=== PATIENT | female | born 1995 | race Caucasian/White ===

== ENCOUNTER 2025-07-01 18:00 | Outpatient (REF) | payer OTHER, SELFPAY ==
--- NOTE | ~2025-07-01 | MR_ITS ---
EXAMINATION: MR LUMBAR SPINE WITHOUT CONTRAST CLINICAL INFORMATION: Radiculopathy COMPARISON: None available. TECHNIQUE: MRI of the lumbar spine was obtained using routine sequences without contrast. FINDINGS: Last rib-bearing vertebra labeled T12. No bone marrow STIR signal abnormality. Disc desiccation at L4-5 and L5-S1. Normal alignment. Conus medullaris ends at intervertebral disc T12-L1 with normal signal. T12-L1: No disc herniation. No neuroforamina stenosis. L1-2: No disc herniation. No neuroforamina stenosis. Mild broad-based disc bulging. L2-3: Broad-based disc bulging. No central spinal canal or neuroforamina stenosis. L3-4: Broad-based bulging. Facet joint hypertrophy. Reduced AP diameter of the thecal sac and neuroforamina. L4-5: Broad-based disc bulging. Facet joint hypertrophy. Facet effusions. Reduced AP diameter of the thecal sac. Bilateral neuroforamina stenosis encroaching the exiting nerve roots of L4. L5-S1: Broad-based disc bulging. Facet joint hypertrophy. Reduced AP diameter of the thecal sac. Bilateral neuroforamina stenosis encroaching the L5 exiting nerve roots. No prevertebral compartment hematoma, mass or fluid collection. MR/MR lumbar spine wo con IMPRESSION: Multilevel lumbar spondylosis pronounced at L4-5, L5-S1 and to a lesser extent L3-4 likely encroaching the exiting nerve roots L3-L4 and L5. Electronically signed by: Jarred Patterson MD 07/02/2025 06:47 AM [facility] [place]
--- OUTSIDE RECORDS SUMMARY | 2025-07-02 00:56 | XMS_ITS | Encounter Summary ---
Author Organization [facility] Address [address] [place] [address] [place] [phone] Phone Care Team Providers Care Catering Sous Chef Name Role Phone Lucrecia Stewart MD Primary Care Provider [phone] Lucrecia Stewart MD Unavailable [phone] February, Yeimi Gonzales MD Unavailable [phone] Lucrecia Stewart MD Unavailable [phone] Encounter Details Date Type Department Care Team (Late st Contact Info) Description 11/02/2023 Procedure Pass [facility] Diagnostic Cardiology [address] [place] [phone] Social History Tobacco Use Types Packs/Day Years Used Date Smoking Tobacco: Never Smokeless Tobacco: Never Alcohol Use Standard Drinks/Week Comments Not Currently 0 (1 standard drink = 0.6 oz pur e alcohol) soc Education Answer Date Recorded Are you interested in more education? Not on osvaldo e 11/17/2022 Are you concerned about learning? Not on file 11/17/2022 No 11/17/2022 No 11/17/2022 Digital Access Answer Date Recorded No 12/15/2022 No 12/15/2022 Reliable internet access at home? Not on file 12/15/2022 Device with a working camera? Not on file Comments No Sex and Gender Information Value Date Recorded Sex Assigned at Female 09/13/2020 11:27 AM EST Legal Sex Female 1:20 PM EDT Gender Identity Genderqueer/Queer 04/09/2023 10: 00 AM EDT Sexual Orientation Lesbian or Qureshi 04/09/2023 10 :00 AM EDT Sexual Orientation Queer 04/09/2023 10 :00 AM EDT documented as of this encounter Plan of Treatment Not on file documented as of this encounter Goals Goal Patient Goal Type Associated Problems Recent Progress Patient-Stated? Author Patient will contact her insurance to see if they can send her a list of therapy resources in network with her specific plan. General Improving( 12:12 PM EDT) Cathryn Correia documented as of this encounter Visit Diagnoses Not on filedocumented in this encounter Additional Health Concerns Assessment Noted Time PHQ-9 Depression Total Score: 22 03/16/ 023 3:10 PM EDT PHQ-2 Depression Total Score: 1 11/26/19 24 2:36 PM EDT documented as of this encounter Care Teams Catering Sous Chef Relationship Specialty Start Date End Date Lucrecia Stewart MD [address] [place] [phone] [email or web address] PCP - General 08/09/16 Lucrecia Stewart MD [address] [place] [phone] Historical LMR Provider 08/14/16 Yeimi Adams MD [address] [place] [phone] Obstetrics and Gynecology 05/24/20 Lucrecia Stewart MD [address] [place] [phone] Insurance Assigned Provider 12/01/23 01/31/25 documented as of this encounter Additional Source Comments The information contained in this document represents components of the legal health record. It is not the complete legal health record.[facility]
--- OUTSIDE RECORDS SUMMARY | 2025-07-02 00:57 | XMS_ITS | Clinical Summary ---
Author Organization [facility] Address [address] [facility] [address] [place] [phone] Phone Care Team Providers Care Insulation Hoseman Name Role Phone Lucrecia Stewart MD Primary Care Provider Lucrecia Stewart MD Unavailable [phone] February, Yeimi Gonzales MD Unavailable [phone] Allergies Active Allergy Reactions Criticality Noted Date Comments Penicillins 06/03/2023 Unsure of reaction Medications levonorgestreL (MIRENA) 20 mcg/24 hours (6 yrs) 52 mg intrauterine device 1 each by Intrauterine route. Active fluticasone propionate (FLONASE) 50 mcg/actuation nasal sprayIndications:S easonal allergic rhinitis due to pollen 2 sprays by Nasal route daily. 16 g 2 05/29/20 23 Active baclofen (LIORESAL) 10 MG tabletIndications: muscle spasticity of spinal origin Take 10 mg by mouth nightly at bedtime as needed for spasm. Indications: muscle spasms caused by a spinal disease Active levalbuterol (XOPENEX HFA) 45 mcg/actuation inhalerIndications :Asthma Inhale 2 puffs into the lungs every 6 (six) hours as needed for wheezing. 15 g 08/12/19 25 Active propranoloL (INDERAL) 10 MG immediate release tabletIndications: Anxiety Take 1 tablet (10 mg total) by mouth 2 (two) times a day. 60 tablet 08/29/19 25 Active Additional Information Patient taking differently:10 mg Oral 2 times daily,As needed, Reported on 11/07/2024 ondansetron (ZOFRAN-ODT) 4 MG disintegrating tabletIndications: Nausea and vomiting, unspecified vomiting type Take 1 tablet (4 mg total) by mouth daily as needed for nausea. 7 tablet 08/29/19 25 Active LORazepam (ATIVAN) 0.5 MG tabletIndications: Anxiety Take 1 tablet (0.5 mg total) by mouth daily as needed for anxiety. 7 tablet 11/08/19 25 Active SUMAtriptan (IMITREX) 50 MG tablet Take 1 tablet (50 mg total) by mouth once as needed for migraine. Can repeat dose in 2 hours if needed. Do not exceed 2 doses in a 24 hour period. Max dose 200mg/ day 2 tablet 11/11/19 25 Active DULoxetine (CYMBALTA) 60 MG capsuleIndications :Recurrent major depressive disorder, in partial remission Take 1 capsule (60 mg total) by mouth every morning. PLEASE SCHEDULE 6 MONTH FOLLOW UP 90 capsule 05/27/20 25 Active Active Problems Problem Noted Date Diagnosed Date Body mass index (BMI) 40.0-44.9, adult Assessment & Plan (08/29/2024 11:33 AM EST): Wt Readings from Last 3 Encounters: 08/29/24 112 kg (247 lb) 07/04/24 122 kg (269 lb) 06/02/24 128.4 kg (283 lb) Could consider 2.5mg of zepbound in future once source of vomiting is determined. She was taking that dosing with effect. Nausea and vomiting 08/29/2024 Assessment & Plan (08/29/2024 9:43 AM EST): Patient with 3 recent ED visits. I have reviewed each ED visit. Last visit showed potassium of 3.2, will repeat BMP today. If it continues to be low patient will be replaced with potassium supplement. We discussed continuing Gatorade, Pedialyte and eating things like pretzels and soups. We reviewed her CT scan possible pancolitis noted and possible inflammatory changes noted around pancreas. Lipase was normal. She had a nonacute abdomen in office today. She will discuss with GI in depth later today. We discussed that marijuana and Zepbound could be contributing to symptoms. She will continue to hold both until the etiology of her nausea and vomiting is determined. 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 Assessment & Plan (04/28/2024 1:53 PM EDT): Patient feels like symptoms are improving with [facility]. She will continue as recommended by clinic. She will send me paperwork I can review. Postural dizziness 01/23/2024 Assessment & Plan (02/15/2024 10:09 AM EDT): Patient will complete echo as recommended by cardiology. Assessment & Plan (01/23/2024 3:30 PM EDT): She may have POTS, based on history of orthostatic intolerance and correlation of symptoms with sustained increase in heart rate (at least 30 beats/minute) within 10 minutes of standing, without orthostatic hypotension. Differential includes: dehydration, iatrogenic effect of medications, reflex syncope, orthostatic hypotension, inappropriate sinus tachycardia, panic/anxiety. Initial treatment recommended: 3 liters of water intake daily, with 8-12 grams of sodium intake daily (2 Tsp) Routine exercise, with consideration of physical therapy. Lower extremity muscle tensing/leg crossing/weight shift with onset of symptoms, to improve venous return. Consider: compressive stockings and/or abdominal binder Continue beta maribel therapy with propranolol Palpitations 01/22/2024 Assessment & Plan (08/29/2024 9:40 AM EST): Slightly long QTc observed during one of the patient's ED visits. QTC in normal range again. 12 lead EKG obtained, see report in MUSE. Given low heart rate, will reduce the propranolol to 10 mg twice daily. She will continue to monitor heart rate. Assessment & Plan (01/22/2024 7:49 PM EDT): Reviewed recent Zio patch monitor results with patient in detail today. No Afib, SVT or NSVT. Her palpitations correlated with sinus tachycardia. 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 She will also follow up with GI as well. Assessment & Plan (02/15/2024 10:10 AM EDT): Patient had previously reported rectal bleeding, with the perianal fistula, I have also referred there to GI for further evaluation Assessment & Plan (01/14/2024 3:17 PM EDT): Continue as recommended by surgery. Assessment & Plan (12/21/2023 1:33 PM EDT): She will continue as recommended by surgery. Keep appointment as scheduled on 01/14/24 for re-assessment of symptoms. Sinus tachycardia 12/03/2023 Assessment & Plan (11/07/2024 1:34 PM EDT): Patient uses propranolo 10mg BID as needed. She mostly uses it when she knows she will be active. Assessment & Plan (01/23/2024 3:32 PM EDT): Diagnosis discussed with patient today, along with normal ETT results. Likely represents high adrenergic tone. RECOMMEND: Daily physical activity. Good oral fluid hydration. Weight loss. Continue propranolol. Decrease marijuana use. Non-urgent echocardiogram. Assessment & Plan (01/14/2024 3:20 PM EDT): Has ongoing symptoms, due to the symptoms has requested a modified work schedule. We have agreed upon her working 5 hours a day 4 days a week until she is reassessed. She will drop off paperwork for me to fill out. Keep appointment as scheduled with cardiology on January 24. Assessment & Plan (12/21/2023 1:29 PM EDT): Keep appointment as scheduled with cardiology on 01/23/24. Assessment & Plan (12/03/2023 4:00 PM EDT): Holter showed sinus tachycardia, referred to cardiology for further evaluation. Urgent follow up indicated for any worsening symptoms. Obesity 11/30/2023 Assessment & Plan (07/04/2024 8:10 AM EST): Tolerating 2.5mg weekly of zepbound without any adverse side effects. Will increase to 5mg weekly. Continue with lifestyle modifications. I will see patient in follow up on 08/29/24, follow up PRN prior. Medication slowing stool, which she finds beneficial but she is aware she should still follow up with GI. Assessment & Plan (06/04/2024 7:29 AM EST): Patient is interested in injectable anti-obesity medication. The following contraindications and precautions were reviewed and discussed: no. Contraindications: Personal or family history Medullary Thyroid Cancer (MTC) or a personal history of Multiple Endocrine Neoplasia Type 2 (MEN2) - [Black Box Warning] Warnings: Not intended for use if or trying to become Not recommended for patients with unprovoked pancreatitis (not due to gallstones), severe gastroparesis, or other severe GI disease If on Oral Contraceptive (OCP), patient should use a backup form of contraception for four weeks when starting and titrating the dose as these medications can affect OCPs (per package insert for tirzepatide; at prescriber discretion for other medications) GI side effects (i.e., nausea, vomiting, diarrhea/constipation) are common with these medications Patient has Medicare insurance? No. Discussed weight management options and patient would like to proceed with injectable anti-obesity medication. Estimated body mass index is 43.03 kg/m as calculated from the following: Height as of 02/01/24: 172.7 cm (5' 8 ). Weight as of this encounter: 128.4 kg (283 lb). Patient has the following FDA Approved Indications: BMI >30 (+/-) the following comorbidities (select all that apply): Other Cardiovascular Disease - LVH. Any ORAL anti-obesity medication contraindications/warnings? (I.e.: CAD, uncontrolled HTN, history of suicidal ideation, already on stimulant medication) Yes, anxiety. Note: Certain insurances may have more strict BMI criteria for approval Weight Management History: Patient has participated in a comprehensive weight management program (enrollment to a plan i.e. Weight Watchers, [employer], Noom, which may require receipts) that encourages behavioral modification, reduced calorie diet and increased physical activity with continuing follow-up prior to using drug therapy?Yes. Name of program: [employer], my fitness pal Dates started and stopped: this year Did this incur a cost to the patient: no Did the patient lose at least 5 percent of baseline body weight. no. The requested drug will be used with a reduced calorie diet and increased physical activity for chronic weight management? yes Previous anti-obesity medication(s) used (with dates and reasons for stopping): none Next Steps/Patient Expectations: [x] There is no guarantee the prior authorization will be approved. [x] This is a time intensive process. It will most likely require a prior authorization and it may be difficult to find it in stock at a pharmacy due to current medication shortages. [x] It is the patient's responsibility to find the medication at a local pharmacy. Patient can request the pharmacy to transfer it in from wherever it was initially sent, or ask the prescriber to send a new prescription if needed. [x] If the medication is a listed plan exclusion (not covered) we will not be submitting an appeal, as the medication will not be covered. Discussed with patient: yes Assessment & Plan (02/15/2024 10:11 AM EDT): She is working on diet. Fibromyalgia 02/05/2023 Assessment & Plan (01/14/2024 3:18 PM EDT): Patient will be participating in [facility] but needs to complete after her surgery because the program does not want her to start and stop program. Assessment & Plan (12/21/2023 1:30 PM EDT): Is pursuing evaluation by [facility]. May require multiple treatments based on evaluation. Assessment & Plan (11/02/2023 1:25 PM EDT): Referred to pain management for eval. Assessment & Plan (02/05/2023 3:43 PM EDT): Since last visit with Dr. 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 Hernandez on 04/16/23. Annual physical exam 05/21/2020 Overview (12/03/2023): Pap smear: negative for malignancy, 2020 Dental: advised to schedule a cleaning Vision: up to date Tdap: will defer for now Pneumonia: declines HPV: completed Flu: n/a Std testing: agreeable to proceeding Screening labs: as ordered Primary insomnia 04/16/2020 Assessment & Plan (05/28/2020 2:39 PM EST): Patient with definite improvement in symptoms of insomnia on trazodone however she feels overly sedated the next day. She was not having any improvement in her symptoms on 50 mg therefore I recommended that she cut from 100 to 75 mg to see if that can both control her symptoms and help with the feeling of fatigue the next day. She will keep her appointment as scheduled with medication provider. Migraine without aura and wi thout status migrainosus, not intractable 01/18/2018 Seasonal allergic rhinitis due to pollen 018 Uncoded Health Care Proxy 05/30/16 05/31/2016 Overview (08/12/2016): Health Care Proxy 05/30/16 Asthma 05/30/2016 Overview (09/08/2016): Asthma Assessment & Plan (04/26/2021 11:08 AM EDT): Well controlled and uses Albuterol prn Recurrent major depressive disorder 05/30/2016 Overview (09/08/2016): sees Psych provider who is [place] and they have phone sessions every 2 weeks. Juanito Frederick ( psychologist) Depressive disorder; sees Psych provider who is in [place] and they have phone sessions every 2 weeks. Juanito Frederick ( psychologist) Assessment & Plan (11/07/2024 1:34 PM EDT): As above for anxiety. Assessment & Plan (12/03/2023 4:04 PM EDT): Appears in good spirits today Assessment & Plan (03/16/2023 4:22 PM EDT): Will increase to cymbalta 60mg daily. Denies thoughts of hurting with self or others. [place] has met with patient at conclusion of visit to offer support and other suggestions. Assessment & Plan (01/16/2023 5:37 PM EDT): At her last visit patient continued to report generalized body aches. She had been evaluated by the client relations specialist who felt that she had generalized myofascial pain and it had been recommended that she be evaluated by the sales and events coordinator. During that visit I had discussed with her that she may benefit from Cymbalta. We therefore agreed to wean her off sertraline and transition her to Cymbalta. She has now been off sertraline for the last 3 days. I discussed starting Cymbalta at a small dose of 20 mg once daily and we will reevaluate her response to this. She has not yet seen the sales and events coordinator. Assessment & Plan (04/26/2021 11:20 AM EDT): Currently takes Sertraline 37.5 mg nightly which is working better Anxiety 05/30/2016 Overview (09/08/2016): Anxiety Assessment & Plan (11/07/2024 1:34 PM EDT): Orders: LORazepam (ATIVAN) 0.5 MG tablet; Take 1 tablet (0.5 mg total) by mouth daily as needed for anxiety. Anxiety June extremely high now. She will continue on Cymbalta 60 mg daily. She will take lorazepam as needed for severe panic syndrome. I have filled out the PFMLA paperwork for her. Urgent follow-up indicated symptoms worsen in any way. 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 However she does report heightened anxiety with repetitive episodes of emesis. Ativan was refilled, MassPAT verified. Assessment & Plan (03/16/2023 4:21 PM EDT): Anxiety continues to be high. While cymbalta is being titrated up again, a supply of ativan will be given again. Mass Pat pulled and verified Assessment & Plan (02/05/2023 3:42 PM EDT): Anxiety extremely high now. She would likely benefit from an increased Cymbalta dose. I have increased her to 30 mg. I have also prescribed Ativan 1 tablet to take as needed after she is home for the day to help with anxiety. She is aware it is as needed medication and should should not take daily. She has a support of her roommate, family and her support dog. She is actively looking for a therapist. Would recommend follow up in one month Chronic post-traumatic stress disorder (PTSD) Overview (09/08/2016): Chronic post-traumatic stress disorder Assessment & Plan (02/05/2023 3:43 PM EDT): As above for anxiety Vitamin D deficiency 05/30/2016 Overview (09/08/2016): Vitamin D deficiency Bee sting allergy 05/30/2016 Overview (02/07/2017): Bee Venom Protein. Swelling. Converted From LMR Free Text Allergy. 02/07/17. Allergy to cats 05/30/2016 Overview (02/07/2017): Cats. Converted From R Free Text Allergy. 02/07/17. Food allergy 05/30/2016 Overview (02/07/2017): Spinach. Converted From LMR Free Text Allergy. 02/07/17. Encounters Date Type Department Care Team Description 05/27/2025 Refill [facility] [address] [place] [address] Lucrecia Stewart MD Medication Refill from Last 3 Months Immunizations Immunization Administration Dates Next Due COVID-19 (Pre-05/14) Pfizer Vaccine, mRNA, PF 10/18/2020 DTaP 09/05/2001, 9,1997,10/21,1997 HPV, unspecified formulation 05/30/2016 HPV,quadrivalent 07/06/2015,04/14/2014, 3 Hepatitis A, Unspecified 07/06/2015 Hepatitis B 03/31/1998,1997,1997 Hepatitis B Adult 10/28/2018 Hib, unspecified formulation 09/20/1998, 1997,1997,08/23 INFLUENZA, SPLIT VIRUS, TRIVALENT PF 10/24/2024 IPV 09/05/2001, 8,1997,08/23 Influenza, Unspecified Formulation 05/30(Deferred: Patient Decision - 00) MMR 09/11/2002,09/20/1998 Meningococcal MCV4P 07/06/2015,09/22/2010 Pneumococcal conjugate PCV20 10/24/2024 Tdap 11/04/2021, 2(Deferred: Other),09/22/2010 Varicella 02/22/2012,03/11/2002 Family History Medical History Relation Comments Glaucoma Unspecified Breast cancer Neg Hx Colon cancer Neg Hx Ovarian cancer Neg Hx Relation Status Comments Unspecified Social History Tobacco Use Types Packs/Day Years Used Date Smoking Tobacco: Never Smokeless Tobacco: Never Alcohol Use Standard Drinks/Week Comments Not Currently 0 (1 standard drink = 0.6 oz pur e alcohol) Education Answer Date Recorded Are you interested in more education? Not on osvaldo e 11/17/2022 Are you concerned about learning? Not on file 11/17/2022 No 11/17/2022 No 11/17/2022 Digital Access Answer Date Recorded No 12/15/2022 No 12/15/2022 Reliable internet access at home? Not on file 12/15/2022 Device with a working camera? Not on file Intimate Partner Violence Answer Date R ecorded Are you denied basic needs s uch as food, clothing, or medical care? No 09/15/2024 In the past 12 months have y ou been in a relationship with a person who hurts, threatens, or tries to control you? No 09/15/2024 Are you denied basic needs s uch as food, clothing, or medical care? No 09/15/2024 In the past 12 months have y ou been in a relationship with a person who hurts, threatens, or tries to control you? No 09/15/2024 Comments No Sex and Gender Information Value Date Recorded Sex Assigned at Female 09/13/2020 11:27 AM EST Legal Sex Female 1:20 PM EDT Gender Identity Genderqueer/Queer 04/09/2023 10: 00 AM EDT Sexual Orientation Lesbian or Qureshi 04/09/2023 10 :00 AM EDT Sexual Orientation Queer 04/09/2023 10 :00 AM EDT Last Filed Vital Signs Vital Sign Reading Time Taken Comments Blood Pressure 136/79 09/15/2024 10:28 AM EST Pulse 92 11/07/2024 11:10 AM EDT per pt Temperature 36.3 C (97.4 F) 09/15/2024 9:54 AM EST Respiratory Rate 20 09/15/2024 10:28 AM EST Oxygen Saturation 99% 09/15/2024 10:28 AM EST Inhaled Oxygen Concentration - - Weight 117.9 kg (260 lb) 11/07/2024 11:10 AM EDT Height 172.7 cm (5' 8 ) 09/15/2024 8:39 AM EST Body Mass Index 39.53 09/15/2024 8:39 AM EST Plan of Treatment Health Maintenance Due Date Last Done Comments HEPATITIS A VACCINES (2 of 2 - 2-dose series) 01/05/2016 07/06/2015 PAP SMEAR 2018 REPEAT PHQ 12/07/2024 11/07/2024, 11/07/2024 INFLUENZA VACCINE (#1) 2025 10/24/2024 COVID-19 VACCINE (2024- season) 2025 04/17/2024, 04/20/2023, 05/25/2022, Additional history exists DEPRESSION SCREENING 11/07/2025 11/07/2024, 11/08/19 25 Adult Td,Tdap Booster 11/05/2031 11/04/2021, 011 HIB VACCINES Completed 09/20/1998, 07/1997, 1997, Additional history exists MENINGOCOCCAL VACCINES (ACWY) Completed 07/06/2015, 09/22/2010 HEPATITIS C SCREENING Completed 11/30/2023 , 11/10/2021, 08/08/2018 HIV ONE-TIME SCREENING (18-65 YEARS) Completed 11/30/2023 PNEUMOCOCCAL VACCINES (0-49 years) Completed 10/24/2024 SMOKING STATUS SCREENING (Once After 26 Yrs) Completed 11/10/2024 MENINGOCOCCAL VACCINES (B) Aged Out N o longer eligible based on patient's age to complete this topic Goals Goal Patient Goal Type Associated Problems Recent Progress Patient-Stated? Author Patient will contact her insurance to see if they can send her a list of therapy resources in network with her specific plan. General Improving( 12:12 PM EDT) Cathryn Correia Medical Devices Implanted Type Area Dairy Farm Manager Device Identifier Shelf Expiration Date Model / Serial / Lot Control Device Control Device Procedures Procedure Name Priority Date/Time Associated Diagnosis Comments HEPATITIS ACUTE PANEL Routine 11/30/2023 3:10 PM EDT Screening examination for STD (sexually transmitted disease) from Last 3 Months or Most Recently Relevant to Health Maintenance Results * Hepatitis acute panel (11/30/2023 3:10 PM EDT) HBV SURFACE ANTIGEN Negative Negative [facility] Hepatitis A Antibody, IgM Negative Negative [facility] HEP B CORE IGM AB Negative Negative [facility] HCV ANTIBODY Negative Negative [facility] Blood 11/30/2023 3:10 PM EDT 11/30/2023 4:48 PM EDT us Carolkala Jones [employer] BLOOD BKR ORDERAB LES Final Result Performing Organization Address City/State/[facility] Co de Phone Number [address] [address], [facility] [phone] from Last 3 Months or Most Recently Relevant to Health Maintenance Insurance [facility] PPO [facility] PPO [facility] [address] [place] [address] Advance Directives For more information, please contact: [phone] (9AM - 5PM [facility], Sunday-Sunday) * Full Code (Latest Code Status on File) Date Activated Date Inactivated Comments 09/15/2024 8:17 AM Question Answer Comments Code Status Confirmed With: Patient Care Teams Insulation Hoseman Relationship Specialty Start Date End Date Lucrecia Stewart MD [address] [place] [phone] [email or web address] PCP - General 08/09/16 Lucrecia Stewart MD [address] [place] [phone] Historical LMR Provider 08/14/16 Yeimi Adams MD [address] [place], [place] [phone] Obstetrics and Gynecology 05/24/20 Additional Source Comments The information contained in this document represents components of the legal health record. It is not the complete legal health record.[facility]
--- OUTSIDE RECORDS SUMMARY | 2025-07-02 00:57 | XMS_ITS | Encounter Summary ---
Author Organization [facility] Address [address] [place] [address] [place] [phone] Phone Care Team Providers Care Reed Polisher Name Role Phone Lucrecia Stewart MD Primary Care Provider [phone] Lucrecia Stewart MD Unavailable [phone] February, Yeimi Gonzales MD Unavailable [phone] Lucrecia Stewart MD Unavailable [phone] Encounter Details Date Type Department Care Team (Late st Contact Info) Description 01/23/2024 Procedure Pass [facility] [address] [place] [phone] Social History Tobacco Use Types Packs/Day Years [...] 3:10 PM EDT PHQ-2 Depression Total Score: 2 02/15/20 24 9:44 AM EDT documented as of this encounter Care Teams Reed Polisher Relationship Specialty Start Date End Date Lucrecia Stewart MD [address] [place] [phone] PCP - General 08/09/16 Lucrecia Stewart MD [address] [place] [phone] Historical LMR Provider 08/14/16 Yeimi Adams MD [address] [place] [phone] Obstetrics and Gynecology 05/24/20 Lucrecia Stewart MD [address] [place] [phone] Insurance Assigned Provider 12/01/23 01/31/25 documented as of this encounter Additional Source Comments The information contained in this document represents components of the legal health record. It is not the complete legal health record.[facility]
--- OUTSIDE RECORDS SUMMARY | 2025-07-02 00:57 | XMS_ITS | Encounter Summary ---
Author Organization [facility] Address [address] [facility] [address] [place] [address] Phone Care Team Providers Care E/M Engineer Name Role Phone Lucrecia Stewart MD Primary Care Provider [phone] Lucrecia Stewart MD Unavailable [phone] February, Yeimi Gonzales MD Unavailable [phone] Lucrecia Stewart MD Unavailable [phone] Encounter Details Date Type Department Care Team (Late st Contact Info) Description 09/15/2024 Procedure Pass [facility] PERIOP [address] [place] [address] Social History Tobacco Use Types Packs/Day Years [...] specific plan. General Improving( 12:12 PM EDT) No Cathryn Bacon documented as of this encounter Visit Diagnoses Not on filedocumented in this encounter Additional Health Concerns Assessment Noted Time PHQ-9 Depression Total Score: 22 023 3:10 PM EDT PHQ-2 Depression Total Score: 0 08/29/19 25 8:28 AM EST documented as of this encounter Care Teams E/M Engineer Relationship Specialty Start Date End Date Lucrecia Stewart MD [address] [place] [address] [email or web address] PCP - General 08/09/16 Lucrecia Stewart MD [address] [place] [address] [email or web address] Historical LMR Provider 08/14/16 Yeimi Adams MD [address] [place] [id number] [email or web address] Obstetrics and Gynecology 05/24/20 Lucrecia Stewart MD [address] [place] [phone] [email or web address] Insurance Assigned Provider 12/01/23 01/31/25 documented as of this encounter Additional Source Comments The information contained in this document represents components of the legal health record. It is not the complete legal health record.[facility]
--- OUTSIDE RECORDS SUMMARY | 2025-07-02 00:57 | XMS_ITS | Encounter Summary ---
Author Organization [facility] Address [address] [facility] [address] [place] [address] Phone Care Team Providers Care X Ray Control Equipment Repairer Name Role Phone Lucrecia Stewart MD Primary Care Provider [phone] Lucrecia Stewart MD Unavailable [phone] February, Yeimi Gonzales MD Unavailable [phone] Lucrecia Stewart MD Unavailable [phone] Encounter Details Date Type Department Care Team (Late st Contact Info) Description 02/07/2024 Procedure Pass [facility] PERIOPERATIVE DEPT [address] [place] [id number] Social History Tobacco Use Types Packs/Day Years [...] Intimate Partner Violence Answer Date R ecorded Denied Basic Needs Not on file 02/07/2024 In the past 12 months have y ou been in a relationship with a person who hurts, threatens, or tries to control you? No 02/07/2024 Worried food would run out Not on file 02/06 In the past 12 months have y ou been in a relationship with a person who hurts, threatens, or tries to control you? No 02/07/2024 Comments No Sex and Gender Information Value [...] PM EDT PHQ-2 Depression Total Score: 0 12/06/19 24 1:45 PM EDT documented as of this encounter Care Teams X Ray Control Equipment Repairer Relationship Specialty Start Date End Date Lucrecia Stewart MD [address] [place] [address] [email or web address] PCP - General 08/09/16 Lucrecia Stewart MD [address] [place] [address] Historical LMR Provider 08/14/16 Yeimi Adams MD [address] [place] [phone] [email or web address] Obstetrics and Gynecology 05/24/20 Lucrecia Stewart MD [address] [place] [phone] [email or web address] Insurance Assigned Provider 12/01/23 01/31/25 documented as of this encounter Additional Source Comments The information contained in this document represents components of the legal health record. It is not the complete legal health record.[facility]
== END 2025-07-01 18:01 | disposition home or self-care (01) ==
LOC: HO.MRI 18:00
PROVIDERS: Visit Provider Physical Medicine & Rehabilitation
DX: M54.16 Radiculopathy, lumbar region (principal)
CPT/HCPCS: 72148

== ENCOUNTER → 2025-07-01 18:25 | Outpatient (BNV) | payer OTHER, SELFPAY | PROVIDERS: Visit Provider Radiology Diagnostic Radiology | DX: M47.27 Other spondylosis with radiculopathy, lumbosacral region (principal) | CPT/HCPCS: 72148 ==